=== PATIENT | male | born 1995 | race Caucasian/White ===

== ENCOUNTER 2016-10-10 04:56 | Emergency (ER) | payer OTHER ==
[~2016-10-10] VITALS: Ht 190.5 cm; Wt 77.8 kg
[~2016-10-10 04:56] MED LIST: AMOXICILLIN875 MG PO; ANUSOL-HC21 GM PR; BENTYL10 MG PO; MOTRIN600 MG PO; NAPROSYN500 MG PO
[2016-10-10] MEDS ORDERED: NAPROXEN500 MG PO (07:24)
[2016-10-10 07:39] VITALS: BP 153/99
== END 2016-10-10 07:42 | disposition home or self-care (01) ==
LOC: EME 04:56
DX: S54.01XA Injury of ulnar nerve at forearm level, right arm, initial encounter (principal); W22.8XXA Striking against or struck by other objects, initial encounter; F17.200 Nicotine dependence, unspecified, uncomplicated
CPT/HCPCS: 73080; 99281; 99283

== ENCOUNTER 2016-11-06 21:00 | Emergency (ER) | payer SELFPAY ==
[~2016-11-06] VITALS: Ht 190.5 cm; Wt 77.3 kg
[~2016-11-06 21:00] MED LIST changes: +NAPROXEN500 MG PO
[2016-11-06 21:53] LABS: HEMATOCRIT 44.7 % (38.0-50.0); MCH 31.9 PG (29.0-34.0); MCHC 34.7 G/DL (30.0-36.0); MEAN PLAT.VOLUME 9.5 uM^3 (9.0-12.4); PLATELET COUNT 251 K/uL (156-360); RBC DIS.WIDTH-CV 12.6 % (11.8-14.6); RBC DIS.WIDTH-SD 42.7 % (39-53); RED BLOOD COUNT 4.86 M/uL (4.00-5.50); WHITE BLOOD COUNT 9.6 K/uL (4.1-10.2)
[2016-11-06 22:15] LABS: TROP-I INTERPRETATION NEGATIVE; TROPONIN-I 0.01 ng/mL (0.0-0.30)
[2016-11-06 22:43] LABS: CHLORIDE 101 mEq/L (99-109); POTASSIUM 3.9 mEq/L (3.7-5.4); SODIUM 139 mEq/L (136-147)
[2016-11-06 22:45] LABS: GLUCOSE 87 mg/dL (70-99)
[2016-11-06 22:46] LABS: ANION GAP 10 MEQ/L (2-14)
[2016-11-06 22:49] LABS: GFR ESTIMATE (CALCULATED) > 59 mL/min/
[2016-11-06 22:50] LABS: UREA NITROGEN (BUN) 19 mg/dL (9-23)
[2016-11-06 23:39] LABS: BILIRUBIN NEGATIVE; BLOOD NEGATIVE; COLOR YELLOW ((YELLOW)); GLUCOSE (STRIP) NEGATIVE; KETONES 5; LEUKOCYTES NEGATIVE; NITRITE NEGATIVE; PROTEIN (STRIP) 30; SPECIFIC GRAVITY 1.032 (1.000-1.030); UROBILINOGEN 0.2 MG/DL (0.2-1.0)
[2016-11-06 23:40] LABS: ADD MIUA? NO; UCUL ADDED? NO
[2016-11-06 23:51] LABS: ADD MEDTOX COMMENT Y; AMPHETAMINE NEGATIVE (500 ng/mL); BARBITURATES NEGATIVE (200 ng/mL); BENZODIAZEPINES NEGATIVE (150 ng/mL); COCAINE NEGATIVE (150 ng/mL); INTERNAL CONTROLS VALID? YES; METHADONE NEGATIVE (200 ng/mL); METHAMPHETAMINE NEGATIVE (500 ng/mL); OPIATES (MORPHINE) NEGATIVE (100 ng/mL); OXYCODONE NEGATIVE (100 ng/mL); PHENCYCLIDINE NEGATIVE (25 ng/mL); PROPOXYPHENE NEGATIVE (300 ng/mL); THC CANNABINOIDS PRESUMPTIVE POSITIVE (50 ng/mL); TRICYCLIC ANTIDEPRESSANTS NEGATIVE (300 ng/mL)
[2016-11-07 00:16] VITALS: BP 147/107
== END 2016-11-07 00:17 | disposition home or self-care (01) ==
LOC: EME 21:00
PROVIDERS: Emergency Medicine
DX: S29.011A Strain of muscle and tendon of front wall of thorax, initial encounter (principal); X50.3XXA Overexertion from repetitive movements, initial encounter; F19.10 Other psychoactive substance abuse, uncomplicated; F10.99 Alcohol use, unspecified with unspecified alcohol-induced disorder; F17.200 Nicotine dependence, unspecified, uncomplicated
CPT/HCPCS: 71020; 80048; 81003; 84484; 84999; 85027; 93005; 99281; 99283

== ENCOUNTER 2016-11-25 00:35 | Emergency (ER) | payer SELFPAY ==
[~2016-11-25] VITALS: Ht 190.5 cm; Wt 80.6 kg
[2016-11-25] MEDS ORDERED: AMOXICILLIN875 MG PO (01:32)
[2016-11-25] MEDS ORDERED: NORCO 5/3251 TABLET PO (01:32)
[2016-11-25] MEDS ORDERED: PROAIR HFA8.5 GM IH (01:32)
[2016-11-25 01:52] VITALS: BP 140/75
== END 2016-11-25 01:53 | disposition home or self-care (01) ==
LOC: EME 00:35 → EXP 00:46
DX: K04.7 Periapical abscess without sinus (principal); J45.21 Mild intermittent asthma with (acute) exacerbation; F17.200 Nicotine dependence, unspecified, uncomplicated
CPT/HCPCS: 94640; 99281; 99284; S0020

== ENCOUNTER 2016-12-17 20:00 | Emergency (ER) | payer SELFPAY ==
[~2016-12-17] VITALS: Ht 190.5 cm; Wt 77.0 kg
[~2016-12-17 20:00] MED LIST changes: +NORCO 5/3251 TABLET PO; +PROAIR HFA8.5 GM IH
[2016-12-17] MEDS ORDERED: VALIUM5 MG PO (21:11)
[2016-12-17] MEDS ORDERED: MOTRIN800 MG PO (21:11)
[2016-12-17] MEDS ORDERED: NORCO 7.5/321 TABLET PO (21:11)
[2016-12-17 21:51] VITALS: BP 120/78
== END 2016-12-17 21:52 | disposition home or self-care (01) ==
LOC: EME 20:00
DX: S39.012A Strain of muscle, fascia and tendon of lower back, initial encounter (principal); X58.XXXA Exposure to other specified factors, initial encounter; Y93.H1 Activity, digging, shoveling and raking; F17.200 Nicotine dependence, unspecified, uncomplicated
CPT/HCPCS: 99281; 99284; J3010